=== PATIENT | male | born 2000 | race Caucasian/White ===

== ENCOUNTER 2022-05-24 04:47 | Inpatient (IN) | payer SELFPAY ==
[~2022-05-24] VITALS: Ht 188 cm; Wt 66.7 kg
[2022-05-24 06:06] LABS: GLUCOMETER DEV NAME(LOC) POC.BV
[2022-05-24] MEDS ORDERED: HALOPERIDOL 5 MG TABLET PO PRN (08:15)
[2022-05-24 08:48] VITALS: BP 114/67
[2022-05-24 09:11] LABS: BASOPHILS % (AUTO) 0.3 % (0.0-2.0); EOSINOPHILS % (AUTO) 1.9 % (1.0-6.0); HEMATOCRIT 44.4 % (41-53); HEMOGLOBIN 15.5 g/dL (13.5-17.5); LYMPHOCYTES % (AUTO) 47.7 % (22.0-44.0); MEAN CORPUSCULAR HEMOGLOBIN 33.4 pg (26.0-34.0); MEAN CORPUSCULAR HGB CONC 34.9 G/dL (31.0-37.0); MEAN CORPUSCULAR VOLUME 96 fL (80-100); MONOCYTES # (AUTO) 0.5 K/uL (0.1-1.0); MONOCYTES % (AUTO) 7.2 % (2.0-9.0); NEUTROPHILS # (AUTO) 2.7 K/uL (1.8-7.7); NEUTROPHILS % (AUTO) 42.9 % (40.0-70.0); PLATELET COUNT (AUTO) 243 K/uL (150-450); RED BLOOD CELL COUNT(AUTO) 4.65 MIL/uL (4.50-5.90); RED CELL DISTRIBUTION WIDTH 13.2 % (11.5-14.5)
[2022-05-24 09:57] LABS: APPEARANCE,URINE CLEAR (CLEAR); BILIRUBIN,URINE NEGATIVE (NEGATIVE); GLUCOSE, URINE (UA) NEGATIVE (NEGATIVE); KETONES,URINE NEGATIVE (NEGATIVE); LEUKOCYTE ESTERASE ,URINE NEGATIVE (NEGATIVE); NITRATE,URINE NEGATIVE (NEGATIVE); OCCULT BLOOD,URINE NEGATIVE (NEGATIVE); PH,URINE 5.5 (5.0-8.0); PROTEIN,URINE NEGATIVE (NEGATIVE); SPECIFIC GRAVITIY, URINE 1.012 (1.003-1.030); UROBILINOGEN,URINE <=1.0 mg/dL (<=1.0)
[2022-05-24] MEDS ORDERED: INFLUENZA VIRUS VACCINE QVS 2022-23 (6MO+)/PF 60 MCG/0.5 ML SYRINGE IM. ONE (12:00)
[2022-05-24 16:03] VITALS: BP 112/64
[2022-05-24] MEDS: BACITRACIN 28 GM OINTMENT TP SCH (16:20)
[2022-05-24] MEDS: LORazepam 1 MG TABLET PO PRN (17:22)
[2022-05-24 20:58] VITALS: BP 116/77
[2022-05-24] MEDS: ZOLPIDEM TARTRATE 10 MG TABLET PO PRN (21:46)
[2022-05-25] VITALS: BP 112/62
[2022-05-25 08:06] LABS: BASOPHILS % (AUTO) 0.9 % (0.0-2.0); EOSINOPHILS % (AUTO) 2.2 % (1.0-6.0); HEMATOCRIT 40.9 % (41-53); HEMOGLOBIN 14.3 g/dL (13.5-17.5); LYMPHOCYTES # (AUTO) 1.9 K/uL (1.0-4.8); LYMPHOCYTES % (AUTO) 36.6 % (22.0-44.0); MEAN CORPUSCULAR HEMOGLOBIN 33.5 pg (26.0-34.0); MEAN CORPUSCULAR HGB CONC 35.1 G/dL (31.0-37.0); MEAN CORPUSCULAR VOLUME 95 fL (80-100); MONOCYTES # (AUTO) 0.5 K/uL (0.1-1.0); MONOCYTES % (AUTO) 8.9 % (2.0-9.0); NEUTROPHILS # (AUTO) 2.6 K/uL (1.8-7.7); NEUTROPHILS % (AUTO) 51.4 % (40.0-70.0); PLATELET COUNT (AUTO) 220 K/uL (150-450); RED BLOOD CELL COUNT(AUTO) 4.28 MIL/uL (4.50-5.90); RED CELL DISTRIBUTION WIDTH 12.9 % (11.5-14.5)
[2022-05-25 08:24] LABS: HEMOGLOBIN A1C 4.8 % (3.8-5.6)
[2022-05-25 08:40] LABS: CHOL/HDL RATIO 2.5 (4.2-7.3); CHOLESTEROL 167 mg/dL (131-200); FREE T4 (FREE THYROXINE) 1.02 ng/dL (0.76-1.46); HDL CHOLESTEROL 66 mg/dL (40-60); LDL CHOL (CALC.) 87 mg/dL (0-130); THYROID STIMULATING HORMONE 0.95 uIU/mL (0.36-3.74); TRIGLYCERIDES 71 mg/dL (15-150)
[2022-05-25] MEDS: BACITRACIN 28 GM OINTMENT TP SCH ×2 (09:40→17:12)
[2022-05-25 09:47] VITALS: BP 131/70
[2022-05-25 16:18] VITALS: BP 120/65
[2022-05-25] MEDS: LamoTRIgine 25 MG TABLET PO SCH (16:46)
[2022-05-25] MEDS: LORazepam 1 MG TABLET PO PRN (18:59)
[2022-05-25] MEDS: ZOLPIDEM TARTRATE 10 MG TABLET PO PRN (22:06)
[2022-05-26 00:38] VITALS: BP 116/68
[2022-05-26 06:07] LABS: HEPATITIS C AB (EIA) Non Reactive (Non Reactive)
[2022-05-26] MEDS: LamoTRIgine 25 MG TABLET PO SCH (09:16)
[2022-05-26] MEDS: BACITRACIN 28 GM OINTMENT TP SCH (09:16)
[2022-05-26 09:43] VITALS: BP 119/77
== END 2022-05-26 11:20 | disposition home or self-care (01) | DRG 885 ==
LOC: B3A 07:00 → B2S 19:45
PROVIDERS: ADMIT Psychiatry & Neurology Child & Adolescent Psychiatry; ATTEND Psychiatry & Neurology Child & Adolescent Psychiatry
DX: F33.2 Major depressive disorder, recurrent severe without psychotic features (principal); R45.851 Suicidal ideations; F10.10 Alcohol abuse, uncomplicated; F41.9 Anxiety disorder, unspecified; S71.112A Laceration without foreign body, left thigh, initial encounter; S71.111A Laceration without foreign body, right thigh, initial encounter; S51.812A Laceration without foreign body of left forearm, initial encounter; S51.811A Laceration without foreign body of right forearm, initial encounter; X58.XXXA Exposure to other specified factors, initial encounter; Y93.89 Activity, other specified; Y92.89 Other specified places as the place of occurrence of the external cause; Y99.8 Other external cause status
CPT/HCPCS: 80061; 80074; 81003; 83036; 84436; 84439; 84443; 85025; G0480